=== PATIENT | male | born 1955 | race Caucasian/White ===

== ENCOUNTER 2021-04-15 07:28 | Outpatient (CLI) | payer OTHER, SELFPAY ==
[2021-04-15 07:40] VITALS: BP 158/81; PULSE 58; RESP 16; TEMP 36.8; O2SAT 96
--- NOTE | 2021-04-15 07:55 | AMB.MCA ---
Patient Information COVID 19 common symptoms: positive fever(s), chills and cough [facility] COVID test results: No Data to Display outside results available, scanned Criteria/Plan Inclusion/Exclusion Criteria weight >/= 40kg, + direct test </= 10 days ago and symptom onset </= 10 days ago has immunosuppressive disease not requiring hospitalization, not requiring oxygen (if not chronically on oxygen) and no increase oxygen requirement (if chronically on oxygen) Patient education patient/family/caregiver received/reviewed fact sheet, Emergency Use Authorization/unapproved drug status discussed with patient/family/caregiver, alternatives to this treatment discussed with patient/family/caregiver, risks and benefits of medication reviewed with patient/family/caregiver, patient/family/caregiver given opportunity for questions, which were answered and patient consents to receiving Monoclonal Antibody Treatment Plan for treatment Meets criteria for Monoclonal Antibody infusion Ordering Monoclonal Antibody infusion for today
[2021-04-15 09:32] VITALS: BP 167/79; PULSE 54; RESP 16; TEMP 36.5; O2SAT 97
[2021-04-15 10:31] VITALS: BP 158/80; PULSE 51; RESP 17; TEMP 36.4; O2SAT 96
== END 2021-04-15 07:29 | disposition home or self-care (01) ==
PROVIDERS: PCP Nurse Practitioner Family; Visit Provider Nurse Practitioner Family
DX: U07.1 COVID-19 (principal)

== ENCOUNTER → 2023-11-12 13:59 | Outpatient (BNVA) | payer MEDICARE, OTHER, SELFPAY | PROVIDERS: PCP Nurse Practitioner Family; Visit Provider Dermatology | DX: L57.0 Actinic keratosis (principal); L81.4 Other melanin hyperpigmentation; L57.8 Other skin changes due to chronic exposure to nonionizing radiation; Z85.828 Personal history of other malignant neoplasm of skin; Z92.25 Personal history of immunosuppression therapy; L82.1 Other seborrheic keratosis; L82.0 Inflamed seborrheic keratosis; B35.1 Tinea unguium | CPT/HCPCS: 17000; 17110; 99213 ==

== ENCOUNTER → 2024-05-12 13:04 | Outpatient (BNVA) | payer MEDICARE, OTHER, SELFPAY | PROVIDERS: PCP Nurse Practitioner Family; Visit Provider Nurse Practitioner Family | DX: L81.4 Other melanin hyperpigmentation (principal); L57.8 Other skin changes due to chronic exposure to nonionizing radiation; L82.1 Other seborrheic keratosis; L57.0 Actinic keratosis; D48.5 Neoplasm of uncertain behavior of skin; L85.8 Other specified epidermal thickening; Z92.25 Personal history of immunosuppression therapy | CPT/HCPCS: 11102; 17004; 99214 ==

== ENCOUNTER → 2024-05-13 13:24 | Outpatient (BNVA) | payer MEDICARE, OTHER, SELFPAY | PROVIDERS: PCP Nurse Practitioner Family; Visit Provider Nurse Practitioner Family | DX: K57.92 Diverticulitis of intestine, part unspecified, without perforation or abscess without bleeding (principal); R14.0 Abdominal distension (gaseous) | CPT/HCPCS: 74018 ==

== ENCOUNTER → 2024-11-04 11:04 | Outpatient (BNVA) | payer MEDICARE, OTHER, SELFPAY | PROVIDERS: PCP Nurse Practitioner Family; Visit Provider Nurse Practitioner Family | DX: L81.4 Other melanin hyperpigmentation (principal); L57.8 Other skin changes due to chronic exposure to nonionizing radiation; L82.1 Other seborrheic keratosis; Z08 Encounter for follow-up examination after completed treatment for malignant neoplasm; Z85.828 Personal history of other malignant neoplasm of skin; Z92.25 Personal history of immunosuppression therapy; L57.0 Actinic keratosis; L82.0 Inflamed seborrheic keratosis; Z78.9 Other specified health status | CPT/HCPCS: 17004; 17110; 99213 ==

== ENCOUNTER → 2025-05-04 13:42 | Outpatient (BNVA) | payer MEDICARE, OTHER, SELFPAY | PROVIDERS: PCP Nurse Practitioner Family; Visit Provider Nurse Practitioner Family | DX: D69.2 Other nonthrombocytopenic purpura (principal); L81.4 Other melanin hyperpigmentation; L57.8 Other skin changes due to chronic exposure to nonionizing radiation; L82.1 Other seborrheic keratosis; D22.5 Melanocytic nevi of trunk; Z08 Encounter for follow-up examination after completed treatment for malignant neoplasm; Z85.828 Personal history of other malignant neoplasm of skin; L57.0 Actinic keratosis | CPT/HCPCS: 17004; 99213 ==